=== PATIENT | female | born 1975 | race American Indian/Alaskan Native ===

== ENCOUNTER 2017-04-05 12:46 | Emergency (ER) | payer OTHER ==
[2017-04-05 12:58] VITALS: TEMP 98.1; O2SAT 100
--- NOTE | 2017-04-05 13:25 | ED PDOC ---
HPI: Chest Pain Time Seen by Provider: 04/05/17 13:06 Chief Complaint (Nursing): Chest Pain Chief Complaint (Provider): Chest Pain History Per: Patient Additional Complaint(s): 41 yo female,PMH of HTN and Asthma, c/o dry cough x 3 weeks, associated with left sided chest pain, worse with movement and on deep inspiration. Pt taking Naproxen with transient relief. No SOB, no palpitations, n/v or diaphoresis Past Medical History Reviewed: Nursing Documentation, Vital Signs Vital Signs: Last Vital Signs Temp 98.1 F 04/05/17 13:00 Pulse 84 04/05/17 15:06 Resp 15 04/05/17 15:06 BP 180/108 H 04/05/17 15:06 Pulse Ox 100 04/05/17 15:06 - Medical History PMH: Anemia, Arthritis, Asthma, HTN Denies: HIV, Chronic Kidney Disease - Surgical History Surgical History: (x 1) - Family History Family History: States: Unknown Family Hx - Living Arrangements Living Arrangements: With Family - Home Medications Home Medications: Ambulatory Orders Medication Instructions Recorded Amoxicillin/Clavulanate [Augmentin 1 tab PO BID #10 tab 08/31/15 875 MG-125 MG] Lisinopril [Zestril] 10 mg PO DAILY #0 tab 08/31/15 Naproxen 500 mg PO Q12 #0 tab 08/31/15 amLODIPine [Norvasc] 2.5 mg PO DAILY #0 tab 08/31/15 Ibuprofen [Motrin Tab] 800 mg PO Q8 PRN #20 tab 10/26/15 Cyclobenzaprine [Cyclobenzaprine 10 mg PO TID #20 tab 04/05/17 HCl] - Allergies Allergies/Adverse Reactions: Allergies Allergy/AdvReac Type Severity Reaction Status Date / Time No Known Allergies Allergy Verified 10/26/15 16:33 IMAN Risk Score for UA/NSTEMI - IMAN Risk Score Age > 64: NO 3 or more CAD Risk Factors: NO Known CAD (Stenosis greater than 50%): NO Aspirin use in past 7 days: NO Severe Angina: NO EKG ST changes greater than 0.5mm: NO Positive Cardiac Marker: NO IMAN Score: 0 Risk %: 5% Review of Systems ROS Statement: Except As Marked, All Systems Reviewed And Found Negative Cardiovascular: Positive for: Chest Pain Respiratory: Positive for: Cough Physical Exam - Reviewed Nursing Documentation Reviewed: Yes Vital Signs Reviewed: Yes - Physical Exam Appears: Positive for: Well, Non-toxic, No Acute Distress Head Exam: Positive for: ATRAUMATIC, NORMAL INSPECTION, NORMOCEPHALIC Skin: Positive for: Normal Color, Warm, DRY Eye Exam: Positive for: EOMI, Normal appearance, PERRL ENT: Positive for: Normal ENT Inspection Neck: Positive for: Normal, Painless ROM Cardiovascular/Chest: Positive for: Regular Rate, Rhythm. Negative for: Chest Non Tender (tenderness over left 3-4th ribs), Bradycardia, Tachycardia Respiratory: Positive for: CNT, Normal Breath Sounds Gastrointestinal/Abdominal: Positive for: Normal Exam, Bowel Sounds, Soft Back: Positive for: Normal Inspection Extremity: Positive for: Normal ROM Neurologic/Psych: Positive for: Alert, Oriented - ECG O2 Sat by Pulse Oximetry: 100 Medical Decision Making Medical Decision Making: Medicated with Toradol and Flexeril, reports full resolution of pain on re-eval NSR at 87 bpm, no acute ST changes, as read by ED MD CXR IMPRESSION: No active pulmonary disease. Disposition - Clinical Impression Clinical Impression: Chest wall pain - Patient ED Disposition Is Patient to be Admitted: No - Disposition Disposition: Routine/Home Disposition Time: 15:32 Condition: STABLE Prescriptions: Cyclobenzaprine [Cyclobenzaprine HCl] 10 mg PO TID #20 tab Instructions: Chest Wall Pain (ED) Forms: [employer] (Kazakh)
--- NOTE | 2017-04-05 14:46 | RAD ---
HISTORY: COMPARISON: 05/25/2014 TECHNIQUE: Chest PA and lateral FINDINGS: LINES AND TUBES: None. LUNG AND PLEURA: The lungs are well inflated and clear. HEART AND MEDIASTINUM: The heart is not enlarged. The hilar and mediastinal contours are within normal limits. SKELETAL STRUCTURES: The bony structures are within normal limits for the patient's age. VISUALIZED UPPER ABDOMEN: Normal. OTHER FINDINGS: None. IMPRESSION: No active pulmonary disease.
[2017-04-05 15:12] VITALS: BP 180/108; PULSE 84; RESP 15
--- NOTE | 2017-04-07 18:01 | CARD ---
APPROVED REPORT EKG Measurement Heart [id number] <Conclusion> Normal sinus rhythm Biatrial enlargement Abnormal ECG
== END 2017-04-05 13:06 | disposition home or self-care (01) ==
LOC: H.ER 12:46
DX: R07.89 Other chest pain (principal); I51.7 Cardiomegaly; I11.9 Hypertensive heart disease without heart failure; J45.909 Unspecified asthma, uncomplicated
CPT/HCPCS: 71020; 93005; 96372; 99284; J1885

== ENCOUNTER 2017-10-01 08:20 | Emergency (ER) | payer OTHER ==
[2017-10-01 08:23] VITALS: BMI 38.0
--- NOTE | 2017-10-01 08:47 | ED PDOC ---
Upper Extremity Pain/Injury Time Seen by Provider: 10/01/17 08:37 Chief Complaint (Nursing): Upper Extremity Problem/Injury Chief Complaint (Provider): R shoulder pain History Per: Patient History/Exam Limitations: no limitations Onset/Duration Of Symptoms: Days (1) Current Symptoms Are (Timing): Still Present Quality: Sharp Severity: Moderate Exacerbating Factor(s): Strenuous Use Of Affected Area, Movement Additional Complaint(s): 42yo female presents c/o R shoulder and trapezius pain since yesterday morning. Denies trauma or injury. Denies fever, rash or swelling. Notes pain is in upper shoulder radiating to trapezius. Denies neck pain, numbness or weakness. Took naprosyn yesterday with minimal relief. Past Medical History Reviewed: Historical Data, Nursing Documentation, Vital Signs Vital Signs: Last Vital Signs Temp 97.9 F 10/01/17 08:23 Pulse 104 H 10/01/17 08:23 Resp 20 10/01/17 08:23 BP 151/88 H 10/01/17 08:23 Pulse Ox 99 10/01/17 08:23 - Medical History PMH: Anemia, Arthritis, Asthma, HTN Denies: HIV, Chronic Kidney Disease - Surgical History Surgical History: (x 1) - Family History Family History: States: Unknown Family Hx - Living Arrangements Living Arrangements: With Family - Social History Current smoker - smoking cessation education provided: Yes - Home Medications Home Medications: Ambulatory Orders Medication Instructions Recorded Amoxicillin/Clavulanate [Augmentin 1 tab PO BID #10 tab 08/31/15 875 MG-125 MG] Lisinopril [Zestril] 10 mg PO DAILY #0 tab 08/31/15 Naproxen 500 mg PO Q12 #0 tab 08/31/15 amLODIPine [Norvasc] 2.5 mg PO DAILY #0 tab 08/31/15 Ibuprofen [Motrin Tab] 800 mg PO Q8 PRN #20 tab 10/26/15 Cyclobenzaprine [Cyclobenzaprine 10 mg PO TID #20 tab 04/05/17 HCl] Cyclobenzaprine [Cyclobenzaprine 10 mg PO Q8 PRN #9 tab 10/01/17 HCl] Naproxen [Naprosyn] 500 mg PO BID PRN #14 tablet 10/01/17 - Allergies Allergies/Adverse Reactions: Allergies Allergy/AdvReac Type Severity Reaction Status Date / Time No Known Allergies Allergy Verified 10/26/15 16:33 Review of Systems Constitutional: Negative for: Fever Cardiovascular: Negative for: Chest Pain Respiratory: Negative for: Shortness of Breath Gastrointestinal: Negative for: Abdominal Pain Musculoskeletal: Positive for: Shoulder Pain. Negative for: Neck Pain, Arm Pain , Back Pain, Hand Pain, Leg Pain Skin: Negative for: Rash, Lesions, Jaundice Neurological: Negative for: Weakness, Numbness, Headache, Dizziness Physical Exam - Reviewed Nursing Documentation Reviewed: Yes Vital Signs Reviewed: Yes - Physical Exam Appears: Positive for: Well, Non-toxic Head Exam: Positive for: ATRAUMATIC Skin: Positive for: Normal Color, Warm, Dry Eye Exam: Positive for: Normal appearance Respiratory: Negative for: Respiratory Distress Extremity: Positive for: Normal ROM, Other (R trapezius tenderness, FROM passive , no deformity, normal R distal pulses). Negative for: Swelling - ECG O2 Sat by Pulse Oximetry: 99 Medical Decision Making Medical Decision Making: workup for atraumatic R shoulder/trapezius pain initiated check cxr, shoulder xr, initiate pain medicine and lidoderm patch XRay reports reviewed, no fracture, malalignment and CXR unremarkable re-eval 1020a improved, normal ROM. Sling applied for 3 days max. Rx NSAID and muscle relaxant. Caution w over-use. Followup PMD Disposition - Clinical Impression Clinical Impression: Trapezius strain, Shoulder pain - Patient ED Disposition Is Patient to be Admitted: No Counseled Patient/Family Regarding: Studies Performed, Diagnosis, Need For Followup, Rx Given - Disposition Referrals: Lisset Martinez MD [Primary Care Provider] - Disposition: Routine/Home Disposition Time: 10:25 Condition: STABLE Additional Instructions: See your doctor in 2-3 days for followup. Return to ER for any worse or new symptoms. Do not drive or operate machinery while taking muscle relaxants. Prescriptions: Cyclobenzaprine [Cyclobenzaprine HCl] 10 mg PO Q8 PRN #9 tab PRN Reason: Muscle Spasm Naproxen [Naprosyn] 500 mg PO BID PRN #14 tablet PRN Reason: Pain, Moderate (4-7) Instructions: Muscle Strain, Shoulder Pain (DC) Forms: [employer] (Slovenian)
--- NOTE | 2017-10-01 09:36 | RAD ---
HISTORY: R shoulder pain COMPARISON: No prior. TECHNIQUE: Chest PA and lateral FINDINGS: LUNGS: No active pulmonary disease. PLEURA: No significant pleural effusion identified. No pneumothorax apparent. CARDIOVASCULAR: Normal. OSSEOUS STRUCTURES: No significant abnormalities. VISUALIZED UPPER ABDOMEN: Normal. OTHER FINDINGS: None. IMPRESSION: No active disease.
--- NOTE | 2017-10-01 09:36 | RAD ---
PROCEDURE: Radiographs of the Right Shoulder HISTORY: R shoulder/trapezius pain COMPARISON: No prior. FINDINGS: BONES: Normal. No fracture. JOINTS: Normal. Glenohumeral and acromioclavicular joints preserved. No osteoarthritis. SOFT TISSUES: Normal. OTHER FINDINGS: None. IMPRESSION: Normal radiographs of the right shoulder.
[2017-10-01 10:57] VITALS: BP 132/74; PULSE 82; RESP 19; TEMP 98; O2SAT 100
== END 2017-10-01 10:57 | disposition home or self-care (01) ==
LOC: H.ER 08:20 → SUPCPDRO 08:20 → H.ER 10:57
DX: M25.511 Pain in right shoulder (principal); I10 Essential (primary) hypertension
CPT/HCPCS: 71046; 73030; 96372; 99284; J1885

== ENCOUNTER 2018-08-26 13:49 | Emergency (ER) | payer OTHER ==
[2018-08-26 13:49] VITALS: BMI 38.0
[2018-08-26 14:06] VITALS: TEMP 99.4; O2SAT 99
[2018-08-26 15:03] LABS: BASO # 0.1 K/uL (0.0-0.2); BASO % 0.8 % (0.0-2.0); EOS # 0.3 K/uL (0.0-0.7); EOS % 3.1 % (0.0-4.0); HEMOGLOBIN 13.1 g/dL (12.0-16.0); LYMPH # 3.3 K/uL (1.0-4.3); LYMPH % 36.5 % (20.0-40.0); MEAN CELL VOLUME 89.9 fl (81.0-99.0); MEAN CORPUSCULAR HEMOGLOBIN 31.1 pg (27.0-31.0); MEAN CORPUSCULAR HGB CONC 34.6 g/dL (33.0-37.0); MEAN PLATELET VOLUME 8.7 fl (7.2-11.7); MONO # 0.7 K/uL (0.0-0.8); MONO % 7.3 % (0.0-10.0); NEUT # 4.8 K/uL (1.8-7.0); NEUT % 52.3 % (50.0-75.0); NRBC % 0.1 % (0.0-0.0); RBC 4.22 Mil/uL (3.80-5.20); WHITE BLOOD COUNT 9.1 K/uL (4.8-10.8)
[2018-08-26 15:14] LABS: ALBUMIN 3.4 g/dL (3.5-5.0); ALT/SGPT 27 U/L (9-52); AST/SGOT 23 U/L (14-36); BLOOD UREA NITROGEN 17 mg/dl (7-17); CALCIUM 9.3 mg/dL (8.4-10.2); GFR NON-AFRICAN AMERICAN > 60
--- NOTE | 2018-08-26 17:14 | ED PDOC ---
HPI: Chest Pain Time Seen by Provider: 08/26/18 15:40 Chief Complaint (Nursing): Chest Pain Chief Complaint (Provider): CHEST PAIN History Per: Patient History/Exam Limitations: no limitations Onset/Duration Of Symptoms: Days, Intermittent Episodes Current Symptoms Are (Timing): Gone Now Severity: None Pain Scale Rating Of: 0 Quality: Sharp Associated Symptoms: denies: Nausea, Dyspnea, Diaphoresis, Syncope Alleviating Factors: None Additional History Per: Patient Additional Complaint(s): 43 Y/O FEMALE CAME INTO THE ED C/O TRANSIENT RIGHT SIDED CHEST PAIN THIS PAST WEEK. PATIENT REPORTS PAIN STARTED WHILE SITTING AND SUBSIDED ON ITS OWN X1 EPISODE A FEW DAYS AGO. PATIENT STATES TODAY WHILE SITTING PAIN OCCURRED AGAIN AND SUBSIDED. PATIENT DENIES PAIN AT THIS TIME. DENIES SOB, DIZZINESS, NAUSEA, VOMITING, DIAPHORESIS. PAIN STATES PAIN IS NONE RADIATING. PATIENT ALSO DENIES TINGLING AND NUMBNESS. - Risk Factors TAD Risk Factors: Pos: Hypertension Past Medical History Reviewed: Historical Data, Nursing Documentation, Vital Signs Vital Signs: Last Vital Signs Temp 99.4 F 08/26/18 14:04 Pulse 97 H 08/26/18 14:04 Resp 19 08/26/18 14:04 BP 174/98 H 08/26/18 14:21 Pulse Ox 99 08/26/18 14:04 - Medical History PMH: Anemia, Arthritis, Asthma, HTN Denies: HIV, Chronic Kidney Disease - Surgical History Surgical History: No Surg Hx, (x 1) - Family History Family History: States: Unknown Family Hx - Social History Alcohol: None Drugs: Denies - Home Medications Home Medications: Ambulatory Orders Medication Instructions Recorded Amoxicillin/Clavulanate [Augmentin 1 tab PO BID #10 tab 08/31/15 875 MG-125 MG] Lisinopril [Zestril] 10 mg PO DAILY #0 tab 08/31/15 Naproxen 500 mg PO Q12 #0 tab 08/31/15 amLODIPine [Norvasc] 2.5 mg PO DAILY #0 tab 08/31/15 Ibuprofen [Motrin Tab] 800 mg PO Q8 PRN #20 tab 10/26/15 Cyclobenzaprine [Cyclobenzaprine 10 mg PO TID #20 tab 04/05/17 HCl] Cyclobenzaprine [Cyclobenzaprine 10 mg PO Q8 PRN #9 tab 10/01/17 HCl] Naproxen [Naprosyn] 500 mg PO BID PRN #14 tablet 10/01/17 - Allergies Allergies/Adverse Reactions: Allergies Allergy/AdvReac Type Severity Reaction Status Date / Time No Known Allergies Allergy Verified 10/26/15 16:33 IMAN Risk Score for UA/NSTEMI - IMAN Risk Score Age > 64: NO 3 or more CAD Risk Factors: YES Known CAD (Stenosis greater than 50%): NO Aspirin use in past 7 days: NO Severe Angina: NO EKG ST changes greater than 0.5mm: NO Positive Cardiac Marker: NO IMAN Score: 1 Risk %: 5% Curb-65 Severity Score - CURB-65 Severity Score Confusion: No Bun >19mg/dl (>7mmol/L): No Respiratory Rate greater than/equal to 30: No Systolic BP <90 or Diastolic BP less than/equal 60mmHg: No Age >64: No Curb-65 Score: 0 Percentage 30-day mortality: 0.6% Wells Criteria for PE - Wells Criteria for Pulmonary Embolism Clinical Signs and Symptoms of DVT: No P.E is #1 Diagnosis, or Equally Likely: No Heart Rate >100: No Immobilization at least 3 days;Surgery previous 4 weeks: No Previous, objectively diagnosed PE or DVT: No Hemoptysis: No Malignancy w/treatment within 6 months, or palliative: No Total Score: 0 Review of Systems ROS Statement: Except As Marked, All Systems Reviewed And Found Negative Cardiovascular: Positive for: Chest Pain (DENIES CP AT THIS TIME. ) Respiratory: Negative for: Cough, Shortness of Breath, SOB with Exertion, Wheezing Gastrointestinal: Negative for: Nausea, Vomiting, Abdominal Pain Genitourinary Female: Negative for: Dysuria Physical Exam - Reviewed Nursing Documentation Reviewed: Yes Vital Signs Reviewed: Yes - Physical Exam Appears: Positive for: Well, Non-toxic, No Acute Distress Head Exam: Positive for: ATRAUMATIC, NORMAL INSPECTION, NORMOCEPHALIC Skin: Positive for: Normal Color, Warm, DRY Eye Exam: Positive for: Normal appearance, PERRL ENT: Positive for: Normal ENT Inspection Neck: Positive for: Normal, Painless ROM Cardiovascular/Chest: Positive for: Regular Rate, Rhythm Respiratory: Positive for: CNT, Normal Breath Sounds Pulses-Radial (L): 2+ Pulses-Radial (R): 2+ Gastrointestinal/Abdominal: Positive for: Normal Exam, Bowel Sounds (NORMOACTIVE ), Soft Back: Positive for: Normal Inspection Extremity: Positive for: Normal ROM Neurological/Psych: Positive for: Awake, Alert, Normal Tone, Oriented - Laboratory Results Result Diagrams: 08/26/18 14:57 08/26/18 14:57 Lab Results: Troponin I 0.0130 ng/mL (0.00-0.120) 08/26/18 14:57 Total Bilirubin 0.4 mg/dl (0.2-1.3) 08/26/18 14:57 AST 23 U/L (14-36) 08/26/18 14:57 ALT 27 U/L (9-52) 08/26/18 14:57 Alkaline Phosphatase 83 U/L (38-126) 08/26/18 14:57 Total Protein 7.0 G/DL (6.3-8.2) 08/26/18 14:57 Albumin 3.4 g/dL (3.5-5.0) L 08/26/18 14:57 Globulin 3.6 gm/dL (2.2-3.9) 08/26/18 14:57 Albumin/Globulin Ratio 1.0 (1.0-2.1) 08/26/18 14:57 Urine POC: Negative - ECG ECG Rhythm: Positive for: Sinus Rhythm Interpretation Of ECG: SIGNED AND SEEN BY DR. PONCE ekg compared to EKG done one year ago, no significant changes O2 Sat by Pulse Oximetry: 99 Pulse Ox Interpretation: Normal Medical Decision Making Medical Decision Making: --CBC --CMP --TROPONIN --CXR --EKG 1745: HR: 73 b/p:153/85 rr:13 o2sat:99% rm air --labs and cxr reviewed by me.. Patient maintains pain free, HBP improved, Cli nical findings discussed with patient. Patient is stable for discharge home. Patient instructed to follow-up with PMD within the week. Patient states understanding and agrees with plan. Given return to ED precautions. Disposition - Clinical Impression Clinical Impression: Chest pain - Patient ED Disposition Is Patient to be Admitted: No Counseled Patient/Family Regarding: Diagnosis, Need For Followup - Disposition Disposition: Routine/Home Disposition Time: 17:49 Condition: STABLE Instructions: Chest Pain Print Language: GABONESE - POA Present On Arrival: None
[2018-08-26 17:44] VITALS: BP 153/89
[2018-08-26 17:51] VITALS: PULSE 71; RESP 16
--- NOTE | 2018-08-26 17:58 | RAD ---
HISTORY: chest pain COMPARISON: Chest x-ray performed 10/01/17 TECHNIQUE: Chest PA and lateral, 2 views FINDINGS: LUNGS: No focal consolidation. Please note that chest x-ray has limited sensitivity for the detection of pulmonary masses. PLEURA: No significant pleural effusion identified. No definite pneumothorax . CARDIOVASCULAR: The cardiomediastinal silhouette appears within normal limits of size. No atherosclerotic calcification present. OSSEOUS STRUCTURES: No acute osseous abnormality identified. VISUALIZED UPPER ABDOMEN: Unremarkable. OTHER FINDINGS: None. IMPRESSION: No focal consolidation.
--- NOTE | 2018-08-27 09:19 | CARD ---
APPROVED REPORT Date of service: 08/26/2018 EKG Measurement Heart [id number] <Conclusion> Normal sinus rhythm Left atrial enlargement Left ventricular hypertrophy Nonspecific T wave abnormality Abnormal ECG
== END 2018-08-26 17:55 | disposition home or self-care (01) ==
LOC: H.ER 13:49
DX: R07.9 Chest pain, unspecified (principal); I11.9 Hypertensive heart disease without heart failure; J45.909 Unspecified asthma, uncomplicated